=== PATIENT | male | born 1965 | race Caucasian/White ===

== ENCOUNTER 2019-10-16 11:06 | Emergency (ER) | payer BC ==
[2019-10-16] MEDS ORDERED: Sodium Phosphate,Monobasic/Sodium Phosphate,Dibasic Enema 133 ML Bottle RECTAL ONE (11:35)
--- NOTE | 2019-10-16 11:52 | EDM.PDOC ---
ED HPI GENERAL MEDICAL PROBLEM - General Chief Complaint: Gastrointestinal Problem Stated Complaint: CONSTIPATION Time Seen by Provider: 10/16/19 11:25 Source of Information: Reports: Patient History Limitations: Reports: No Limitations - History of Present Illness INITIAL COMMENTS - FREE TEXT/NARRATIVE: 54 YO WM s/p hemorrhoidectomy post op day 5 who presents to ER with complaints of constipation. Pt reports he has had no bowel movement x 6 days and has been taking miralax and Senokot without success. Pt reports no abdominal pain, passing gas, eating and drinking normally without nausea/vomiting. Pt here for something to help him move his bowels. Onset Date: 10/11/19 Duration: Day(s): (5) Severity: Mild Improves with: Reports: None Worsens with: Reports: None Associated Symptoms: Reports: No Other Symptoms RECTAL Pain Score (Numeric/FACES): 5 - Related Data Allergies Allergy/AdvReac Type Severity Reaction Status Date / Time No Known Allergies Allergy Verified 10/16/19 11:14 Home Meds: Home Meds Acetaminophen [Tylenol] 325 - 650 mg PO Q4HR PRN 10/16/19 [History] Polyethylene Glycol 3350 [MiraLAX] 17 gm PO DAILY 10/16/19 [History] Sennosides [Senna] 1 cap PO DAILY 10/16/19 [History] oxyCODONE 5 mg PO Q6HR PRN 10/16/19 [History] ED ROS GENERAL - Review of Systems Review Of Systems: See Below Constitutional: Reports: No Symptoms HEENT: Reports: No Symptoms Respiratory: Reports: No Symptoms Cardiovascular: Reports: No Symptoms Endocrine: Reports: No Symptoms GI/Abdominal: Reports: Constipation. Denies: Abdominal Pain, Nausea, Vomiting : Reports: No Symptoms Musculoskeletal: Reports: No Symptoms Skin: Reports: No Symptoms Neurological: Reports: No Symptoms Psychiatric: Reports: No Symptoms Hematologic/Lymphatic: Reports: No Symptoms Immunologic: Reports: No Symptoms ED EXAM, GI/ABD - Physical Exam Exam: See Below Exam Limited By: No Limitations General Appearance: Alert, WD/WN, No Apparent Distress Head: Atraumatic, Normocephalic Neck: Normal Inspection, Supple, Non-Tender, Full Range of Motion Respiratory/Chest: No Respiratory Distress, Lungs Clear, Normal Breath Sounds, No Accessory Muscle Use, Chest Non-Tender Cardiovascular: Normal Peripheral Pulses, Regular Rate, Rhythm, No Edema, No Gallop, No JVD, No Murmur, No Rub GI/Abdominal Exam: Normal Bowel Sounds, Soft, Non-Tender, No Organomegaly, No Distention, No Abnormal Bruit, No Mass, Pelvis Stable Back Exam: Normal Inspection, Full Range of Motion, NT Extremities: Normal Inspection, Normal Range of Motion, Non-Tender, Normal Capillary Refill, No Pedal Edema Neurological: Alert, Oriented, CN II-XII Intact, Normal Cognition, Normal Gait, Normal Reflexes, No Motor/Sensory Deficits Course - Vital Signs Last Recorded V/S: Last Vital Signs Temp 36.0 C 10/16/19 11:06 Pulse 73 10/16/19 11:06 Resp 16 10/16/19 11:06 BP 142/75 H 10/16/19 11:06 Pulse Ox 97 10/16/19 11:06 - Orders/Labs/Meds Orders: Active Orders 24 hr Category Date Time Status KUB [Abdomen 1V Flat] [CR] Stat Exams 10/16/19 11:15 Ordered Meds: Medications Discontinued Medications Generic Name Dose Route Start Last Admin Trade Name Christian PRN Reason Stop Dose Admin Sodium Biphosphate/Sodium Phosphate 133 ml 10/16/19 11:35 Fleet Enema RECTAL 10/16/19 11:36 ONETIME ONE - Re-Assessments/Exams Free Text/Narrative Re-Assessment/Exam: 10/16/19 12:04 fleets enema successful in ER. Pt with BM Departure - Departure Time of Disposition: 12:04 Disposition: Home, Self-Care 01 Condition: Good Clinical Impression: Status post hemorrhoidectomy Constipation Qualifiers: Constipation type: slow transit constipation Qualified Code(s): K59.01 - Slow transit constipation - Discharge Information Instructions: Constipation, Adult, [id number] Additional Instructions: 1. discharge home 2. fleets enemas as needed- no more than once a day 3. continue Miralax- 1 capful everyday- if no BM may take twice per day x 2 days 4. follow up with PCP next 24-48 hours for recheck 5. return to ER for worsening symptoms Sepsis Event Note - Evaluation Sepsis Screening Result: No Definite Risk - Focused Exam Vital Signs: Vital Signs Temp Pulse Resp BP Pulse Ox 10/16/19 11:06 36.0 C 73 16 142/75 H 97 Date Exam was Performed: 10/16/19 Time Exam was Performed: 11:36 - My Orders Last 24 Hours: My Active Orders 10/16/19 11:15 KUB [Abdomen 1V Flat] [CR] Stat - Assessment/Plan Last 24 Hours: My Active Orders 10/16/19 11:15 KUB [Abdomen 1V Flat] [CR] Stat Assessment:: 1. Constipation 2. post op day 5 hemorrhoidectomy Plan: 1. discharge home 2. fleets enemas as needed- no more than once a day 3. continue Miralax- 1 capful everyday- if no BM may take twice per day x 2 days 4. follow up with PCP next 24-48 hours for recheck 5. return to ER for worsening symptoms
== END 2019-10-16 12:40 | disposition home or self-care (01) ==
LOC: KA.ED 11:06
DX: K59.01 Slow transit constipation (principal); Z98.890 Other specified postprocedural states
CPT/HCPCS: 99283-25

== ENCOUNTER 2019-12-20 06:54 | Day surgery (SDC) | payer BC ==
[2019-12-20] MEDS ORDERED: Lactated Ringers 1,000 ML IV SCH (07:00)
[2019-12-20] MEDS ORDERED: Sodium Chloride 0.9% 10 ML Syringe FLUSH PRN (07:00)
[2019-12-20] MEDS ORDERED: Propofol 200 MG/20 ML SDV ONE ×2 (08:06→09:06)
[2019-12-20] MEDS ORDERED: Midazolam 1 MG/ML 2 ML SDV ONE (08:06)
[2019-12-20] MEDS ORDERED: Ketamine 200 MG/20 ML MDV ONE (08:07)
[2019-12-20] MEDS ORDERED: EPINEPHrine 1:10,000 1 MG/10 ML Syringe ONE (08:17)
[2019-12-20] MEDS ORDERED: GLYCOPYRROLATE 0.2 MG/ML IVPUSH ONE (08:30)
[2019-12-20] MEDS ORDERED: Lactated Ringers 1,000 ML ONE (09:44)
--- NOTE | 2019-12-20 09:46 | PCM.PRNOTE ---
- Free Text/Narrative Note: PROCEDURE PERFORMED: Esophagogastroduodenoscopy with biopsy and colonoscopy with biopsy PRE-PROCEDURE DIAGNOSIS/INDICATION FOR PROCEDURE: Anemia, weight loss, no history of adequate screening for colorectal cancer ( prior incomplete sigmoidectomy in 2012, aborted due to poor prep and patient tolerance) CONSENT: Informed consent was obtained prior to the procedure after discussion of the risks (including pain, bleeding, infection, perforation, inability to completely remove polyps or complete procedure necessitating further procedures , missed polyps, adverse reaction to anesthesia, cardiovascular event), benefits and alternatives and expected outcomes. Verbal consent given and consent form signed. PROCEDURAL PAUSE: Completed SEDATION: Per anesthesia DESCRIPTION OF PROCEDURE: Patient was brought back to the operating room and placed in a left lateral decubitus position. Bite block placed. After adequate sedation and anesthetic was administered, endoscope was inserted into the patient's mouth and was passed easily through the esophagus and stomach into the duodenum without difficulty. Examined duodenum normal appearing. Pylorus normal appearing. Stomach, including viewing in retroflexion, normal appearing. No hiatal hernia. Gastroesophageal junction at 46cm from the incisors. Esophagus normal appearing. The scope was removed without difficulty. Patient tolerated the procedure well. No complications. Attention was then placed on the colonoscopy. A rectal exam was performed revealing healed external hemorrhoidal tissue. A lubricated Olympus Video Colonoscope was inserted into the rectum and air insufflation was performed. The colonoscope was advanced through the rectum, sigmoid, descending, transverse , and ascending colon without difficulties. The cecum was reached and the ileocecal valve as well as the appendiceal orifice were identified and pictorially documented after removal of large amount of solid stool at the cecum. After adequate visualization of the cecum, the scope was withdrawn, giving 360-degree views of the colonic mucosa and retroflexion was performed in the rectum with the following findings noted: Ileocecal valve: Normal Cecum: Normal Ascending colon: One 0.5cm polyp removed with cold forceps with complete removal and subsequent hemostasis noted Hepatic flexure: Normal Transverse colon: Two 0.5cm polyps removed with hot snare with complete removal and subsequent hemostasis noted Splenic flexure: Normal Descending colon: Normal Sigmoid colon: One 0.7cm polyp removed with hot snare and three <0.5cm polyps removed with cold forceps with complete removal and subsequent hemostasis noted Rectum: Healed internal hemorrhoidal tissue The scope was straightened, air suction performed, and the scope withdrawn without complication. Preparation adequacy good with [place] Bowel Prep score 9/ 9 following large amount of solid stool removal at the cecum. IMPRESSION: Esophagogastroduodenoscopy performed revealing no abnormalities, pathology now pending for H.pylori biopsy in the stomach. Colonoscopy performed revealing 7 polyps as detailed above, pathology now pending, and healed internal and external hemorrhoids PLAN: Will contact the patient when pathology results received with recommendation for repeat colonoscopy. Encourage increased fiber diet and bowel regimen to ensure 1-2 soft bowel movements per day.
== END 2019-12-20 12:40 | disposition home or self-care (01) ==
LOC: KA.SDS 06:54
PROVIDERS: ATTEND Family Medicine
DX: D64.9 Anemia, unspecified (principal); R63.4 Abnormal weight loss; D12.2 Benign neoplasm of ascending colon; D12.5 Benign neoplasm of sigmoid colon; K62.1 Rectal polyp; F17.210 Nicotine dependence, cigarettes, uncomplicated; Z90.49 Acquired absence of other specified parts of digestive tract
CPT/HCPCS: J2250; J2704; J3490; J7120

== ENCOUNTER 2025-07-12 12:30 | Emergency (ER) | payer MEDICARE ==
[2025-07-12] MEDS ORDERED: Sodium Chloride 0.9% 10 ML Syringe FLUSH PRN (12:38)
[2025-07-12] MEDS: Amiodarone/Dextrose,Iso-Osmotic 150 MG/100 ML Premix Bag IV ONE (12:52)
[2025-07-12 12:55] LABS: BASOPHILS ABSOLUTE AUTO 0.01 10^3/uL (0.00-0.10); BASOPHILS PERCENT AUTO 0.1 % (0.0-1.0); EOSINOPHILS ABSOLUTE AUTO 0.00 10^3/uL (0.10-0.30); EOSINOPHILS PERCENT AUTO 0.0 % (1.0-3.0); IMMATURE GRAN ABSOLUTE AUTO 0.05 10^3/uL (0.00-0.04); IMMATURE GRAN PERCENT AUTO 0.3 % (0.0-0.4); LYMPHOCYTES ABSOLUTE AUTO 0.97 10^3/uL (1.00-4.00); LYMPHOCYTES PERCENT AUTO 6.6 % (20.0-40.0); MEAN PLATELET VOLUME 10.4 fL (7.4-10.4); MONOCYTES ABSOLUTE AUTO 1.17 10^3/uL (0.10-0.80); MONOCYTES PERCENT AUTO 8.0 % (2.0-8.0); NEUTROPHILS ABSOLUTE AUTO 12.48 10^3/uL (2.50-7.00); NEUTROPHILS PERCENT AUTO 85.0 % (50.0-70.0); PLATELET COUNT,PLT 339 10^3/uL (150-400); RED BLOOD CELL COUNT 6.47 10^6/uL (4.50-6.00); RED CELL DISTRIBUTION WIDTH 17.0 % (11.5-14.5); WHITE BLOOD CELL COUNT,WBC 14.68 10^3/uL (5.00-10.00)
[2025-07-12] MEDS: Etomidate 2 MG/ML 10 ML SDV IVPUSH ONE (12:59)
[2025-07-12] MEDS: Succinylcholine 200 MG/10 ML MDV IVPUSH ONE (12:59)
[2025-07-12] MEDS: Furosemide 40 MG/4 ML VIAL IVPUSH ONE (13:01)
[2025-07-12 13:03] LABS: HCO3 VENOUS,POC 23 mmol/L (22-29); O2 SATURATION VENOUS,POC 75 %; PCO2 VENOUS,POC 49 mmHg (41-51); PH VENOUS,POC 7.28 pH (7.32-7.43); PO2 VENOUS,POC 45 mmHg
[2025-07-12 13:04] LABS: APPEARANCE,URINE TURBID (CLEAR); GLUCOSE,URINE 100 mg/dL (NEGATIVE); OCCULT BLOOD,URINE LARGE (NEGATIVE)
[2025-07-12 13:10] LABS: EPITHELIAL CELLS,URINE NOT SEEN /LPF
[2025-07-12] MEDS: Midazolam 1 MG/ML 2 ML SDV IVPUSH ONE (13:11)
[2025-07-12 13:16] LABS: LACTIC ACID 5.7 mmol/L (0.4-2.0)
[2025-07-12 13:19] LABS: B-TYPE NATRIURETIC PEPTIDE,BNP 2010 pg/mL (0-100)
[2025-07-12] MEDS ORDERED: PHENYLEPHRINE HCL IV ONE ×3 (13:23→13:37)
[2025-07-12 13:24] LABS: ALANINE AMINOTRANSFERASE,ALT 117 U/L (14-63); ASPARTATE AMNIOTRANSFERASE,AST 212 U/L (15-37); BILIRUBIN TOTAL 2.1 mg/dL (0.2-1.0); BLOOD UREA NITROGEN,BUN 18 mg/dL (7-18); CARBON DIOXIDE,CO2 25.7 mmol/L (21.0-32.0); CHLORIDE,CL 100 mmol/L (98-107); CREATININE 1.73 mg/dL (0.51-1.17); ESTIMATED GFR 44 mL/min (>=60); GLUCOSE RANDOM 135 mg/dL (70-140); POTASSIUM,K 5.0 mmol/L (3.5-5.1); PROTEIN TOTAL,TP 7.6 g/dL (6.4-8.2); SODIUM,NA 140 mmol/L (136-145)
[2025-07-12 13:25] LABS: CREATINE KINASE,CK 2759 U/L (26-276)
[2025-07-12 13:26] LABS: ETHANOL BLOOD MEDICAL < 3 mg/dL (<3)
[2025-07-12] MEDS: Amiodarone 360 MG/200 ML 360 MG/200 ML BAG IV SCH (13:35)
[2025-07-12] MEDS: NOREPINEPHRINE IV SCH (13:41)
[2025-07-12] MEDS: SODIUM CHLORIDE IV SCH (13:41)
[2025-07-12] MEDS: Midazolam 1 MG/ML 2 ML SDV ONE (18:41)
[2025-07-12] MEDS: NACL ONE (18:42)
[2025-07-12] MEDS: NOREPINEPHRINE BIT ONE (18:42)
[2025-07-12] MEDS: Furosemide 40 MG/4 ML VIAL ONE (18:42)
== END 2025-07-12 16:55 | disposition expired ==
LOC: KA.ED 12:30
DX: A41.9 Sepsis, unspecified organism (principal); R65.21 Severe sepsis with septic shock; J96.01 Acute respiratory failure with hypoxia; T79.6XXA Traumatic ischemia of muscle, initial encounter; I48.91 Unspecified atrial fibrillation; I11.0 Hypertensive heart disease with heart failure; I50.42 Chronic combined systolic (congestive) and diastolic (congestive) heart failure; J18.9 Pneumonia, unspecified organism; D72.825 Bandemia; R79.89 Other specified abnormal findings of blood chemistry; N50.89 Other specified disorders of the male genital organs; Z79.899 Other long term (current) drug therapy; W19.XXXA Unspecified fall, initial encounter; Y92.019 Unspecified place in single-family (private) house as the place of occurrence of the external cause
CPT/HCPCS: 31500; 36410; 36415; 51702; 71045; 80053; 80143; 80307; 81001; 82550; 82803; 83605; 83690; 83880; 84484; 85025; 85379; 87040; 87086; 92950; 93005; 93010; 94660; 96361; 96365; 96366; 96367; 96368; 96374; 96375; 99291; 99291-25; 99292; J0168; J0169; J0283; J0456; J0696; J1938; J2250; J2371; J3490; J7030; J7050; J7060; Q3014